=== PATIENT | female | born 1985 | race African-American/Black ===

== ENCOUNTER 2018-04-24 16:30 | Emergency (ER) | payer SELFPAY ==
[~2018-04-24] VITALS: Ht 160 cm; Wt 69.1 kg
[~2018-04-24 16:30] MED LIST: AMOXICILLIN 50500 MG PO; ANTIBIOTIC; AURALGAN EAR DR15 ML OT; B-12100 MCG PO; CEPHALEXIN500 M1 PO; COMPAZINE25 MG RC; CYMBALTA60 MG PO; DEPO-PROVER150 MG/M1 IM; DILAUDID 4MG TAB4 MG PO; DOXYCYCLINE 10100 MG PO; EFFEXOR25 M1 PO; ESZOPICOLONE; FERROUS SULFATE65 MG PO; FLAGYL500 MG PO; FLEXERIL; FLEXERIL 1010 MG/TAB PO; FLEXERIL10 MG PO; IRON SUPPLEMENT; KLONOPIN0.5 MG PO; LEVAQUIN 250MG250 MG PO; LEVAQUIN 5500 MG/TA1 PO; LORTAB 5/500 501 TAB PO; MACROBID 1100 MG/CAP PO; MAGIC MOUTH PO; METRONIDAZOLE500 MG PO; MULTIPLE VITAMI1 CAP PO; MVI; NAPROSYN500 MG PO; NO HOME MEDICATIONS; NORCO 325 MG-51 TAB PO; NORCO 325 MG-7.1 TAB PO; PEN-VEE K500 MG PO; PENICILLIN V500 MG PO; PERCOCET 325 MG1 TA2 PO; PERCOCET 5/321 UDTAB PO; PERCOCET 650 MG1 TAB PO; PERCR 7.5 PO; PHENERGAN W/CO120 ML PO; PREDNISONE20 MG PO; PRENATAL VITAMI1 TA5 PO; PRENATAL1 TA1 PO; PRILOSEC 20MG20 MG PO; SEASONALE 30 MC1 TAB PO; SEROQUEL 2525 MG/TAB PO; SEROQUEL300 MG; TRAZODONE50 MG PO; ULTRAM 50MG TAB50 MG PO; VALIUM2 MG PO; VALIUM5 MG PO; VIT B 12; XANAX .25M0.25 MG/TA PO; ZITHROMAX Z PA250 MG PO; ZOFRAN4 M1 PO; [UNRECOGNIZED DRUG - MIXTURE]; [UNRECOGNIZED DRUG - REMARK]; [UNRECOGNIZED DRUG - REMARK]
[2018-04-24 17:08] LABS: BASO % 0.2 % (0.0-2.0); GRAN # 16.1 (1.4-6.5); GRAN % 91.2 % (42.2-75.2); HEMOGLOBIN 10.3 g/dl (12.5-16.0); LYMPH # 0.5 (1.2-3.4); LYMPH % 2.6 % (20.0-51.0); MEAN CELL VOLUME 82 fl (80.0-100.0); MEAN CORPUSCULAR HEMOGLOBIN 27 pg (27.0-31.0); MEAN CORPUSCULAR HGB CONC 33 g/dl (33.0-37.0); MEAN PLATELET VOLUME 10.3 fl (7.4-10.4); MONO # 0.9 (0.1-0.6); MONO % 5.3 % (1.7-9.3); PLATELET COUNT 214 K/mm3 (130-400); RED BLOOD COUNT 3.81 M/mm3 (4.10-5.30); REDCELL DISTRIBUTION WIDTH-CV 14.1 % (11.5-14.5)
[2018-04-24 17:10] LABS: HEMATOCRIT 31.1 % (37.0-47.0)
[2018-04-24 17:23] LABS: COLLECTION METHOD CLEAN CATCH
[2018-04-24 17:23] LABS: ALANINE AMINOTRANSFERASE 37 U/L (9-52); ALBUMIN 3.2 gm/dL (3.5-5.0); ALKALINE PHOSPHATASE 108 U/L (50-136); ANION GAP 9 mmol/L (7-16); AST,SGOT 26 U/L (15-37); BILIRUBIN,TOTAL 0.5 mg/dL (0.0-1.0); BLOOD UREA NITROGEN 9 mg/dL (7-17); CALCIUM 8.3 mg/dL (8.4-10.2); CARBON DIOXIDE 23 mmol/L (22-30); CHLORIDE 97 mmol/L (98-107); GLUCOSE 136 mg/dL (74-106); LIPASE < 10 U/L (23-300); POTASSIUM 3.2 mmol/L (3.4-5.0); SODIUM 129 mmol/L (137-145); TOTAL PROTEIN 6.5 gm/dL (6.4-8.2)
[2018-04-24 17:33] LABS: C-REACTIVE PROTEIN 25.5 mg/dL (0.0-0.9)
[2018-04-24 17:35] LABS: MUCOUS Present /lpf; PH 5 (5-8); URINE APPEARANCE Cloudy; URINE BACTERIA Rare /hpf; URINE BILIRUBIN Negative (NEGATIVE); URINE BLOOD 2+ (NEGATIVE); URINE COLOR Yellow; URINE GLUCOSE Negative (NEGATIVE); URINE KETONE Trace (NEGATIVE); URINE LEUKOCYTE ESTERASE 3+ (NEGATIVE); URINE NITRATE Positive (NEGATIVE); URINE PROTEIN(semi-quant) 2+ (NEGATIVE); URINE RBC >50 /hpf; URINE UROBILINOGEN >=4.0 mg/dL (NEGATIVE)
[2018-04-24 18:54] VITALS: BP 110/67; TEMP 99.3
[2018-04-24] MEDS ORDERED: ZOFRAN 4MG T4 MG/TAB PO (19:58)
[2018-04-24] MEDS ORDERED: CEPHALEXIN500 M1 PO (19:58)
[2018-04-24] MEDS ORDERED: NORCO 325 MG-51 TAB PO (19:58)
[2018-04-24 20:13] VITALS: PULSE 117
== END 2018-04-24 20:13 | disposition home or self-care (01) ==
LOC: COL.ER 16:30
PROVIDERS: Emergency Medicine
DX: N12 Tubulo-interstitial nephritis, not specified as acute or chronic (principal); F17.210 Nicotine dependence, cigarettes, uncomplicated; Z98.51 Tubal ligation status
CPT/HCPCS: J0696; J1885; J2270; J2405; J7030; Q9967

== ENCOUNTER 2020-04-22 07:08 | Emergency (ER) | payer SELFPAY ==
[~2020-04-22] VITALS: Ht 160 cm; Wt 105.5 kg
[~2020-04-22 07:08] MED LIST changes: +ZOFRAN 4MG T4 MG/TAB PO
[2020-04-22 07:09] VITALS: TEMP 98.2
[2020-04-22] MEDS ORDERED: BUSPAR5 MG PO (07:23)
[2020-04-22] MEDS ORDERED: VALIUM 2MG T2 MG/TAB PO (07:23)
[2020-04-22] MEDS ORDERED: PERCOCET 325 MG1 TA2 PO (09:37)
[2020-04-22 11:00] VITALS: BP 112/59; PULSE 81
== END 2020-04-22 11:10 | disposition home or self-care (01) ==
LOC: COL.ER 07:08
DX: S82.842A Displaced bimalleolar fracture of left lower leg, initial encounter for closed fracture (principal); S93.02XA Subluxation of left ankle joint, initial encounter; W17.89XA Other fall from one level to another, initial encounter
CPT/HCPCS: J1885; J3010; Q4045

== ENCOUNTER 2020-04-29 08:59 | Day surgery (SDC) | payer SELFPAY ==
[~2020-04-29] VITALS: Ht 160 cm; Wt 105.3 kg
[~2020-04-29 08:59] MED LIST changes: +BUSPAR5 MG PO; +VALIUM 2MG T2 MG/TAB PO
[2020-04-29] MEDS ORDERED: NORCO 325 MG-7.1 TAB PO ×2 (09:38→13:46)
[2020-04-29 09:59] VITALS: BP 143/84; PULSE 75; TEMP 98.6
[2020-04-29 13:15] VITALS: BP 120/82; PULSE 78
--- NOTE | 2020-04-29 13:15 | NUR ---
Returns to room 4 per cart from PACU accompanied by Jerica LONG and is awake and alert. IV fluids infusing and site is free of redness. Foot of cart elevated. Toes warm to touch. Posterior splint and bulky carmencita wrap dressing dry. Siderails up x2 and call light in reach. Taking ice water and eating crackers.
[2020-04-29 13:30] VITALS: BP 119/63; PULSE 75
--- NOTE | 2020-04-29 13:30 | NUR ---
Tolerated crackers and water. Denies pain and nausea. Foot of cart elevated.
[2020-04-29 13:45] VITALS: BP 125/74; PULSE 67
--- NOTE | 2020-04-29 13:45 | NUR ---
Room air sats 1000%. Toes on the left foot dry.
[2020-04-29] MEDS ORDERED: ROXICODONE 55 MG/TAB PO (13:47)
[2020-04-29 13:57] VITALS: TEMP 97.9
[2020-04-29 14:00] VITALS: BP 126/65; PULSE 82
--- NOTE | 2020-04-29 14:00 | NUR ---
Posterior splint and bulky carmencita wrap dressing dry. Continues to deny pain or nausea.
--- NOTE | 2020-04-29 14:07 | NUR ---
Assisted up to the bedside commode. Able to void and assisted with dressing.
--- NOTE | 2020-04-29 14:20 | NUR ---
IV discontinued and dismissal instructions given. Provided scripts for [place] and Oxycodone. Given instructions for home cares and voices understanding of home cares and follow up appointment.
--- NOTE | 2020-04-29 14:29 | NUR ---
Patient dismissed to home driven by sister and taken to the front door per wheelchair and assisted into vehicle by this RN and dismissal instructions in hand.
== END 2020-04-29 14:29 | disposition home or self-care (01) ==
LOC: SDCO 08:59
DX: S82.852A Displaced trimalleolar fracture of left lower leg, initial encounter for closed fracture (principal); S93.432A Sprain of tibiofibular ligament of left ankle, initial encounter; V48.4XXA Person boarding or alighting a car injured in noncollision transport accident, initial encounter; K21.9 Gastro-esophageal reflux disease without esophagitis; M54.5 Low back pain; F31.9 Bipolar disorder, unspecified; F41.9 Anxiety disorder, unspecified; Z87.891 Personal history of nicotine dependence; Z98.51 Tubal ligation status; Z90.710 Acquired absence of both cervix and uterus; Z79.899 Other long term (current) drug therapy; Z20.828 Contact with and (suspected) exposure to other viral communicable diseases
CPT/HCPCS: C1713; J0690; J1100; J2250; J2405; J2704; J3010; J7120

== ENCOUNTER 2020-08-02 13:54 | Emergency (ER) | payer SELFPAY ==
[~2020-08-02] VITALS: Ht 160 cm; Wt 105.0 kg
[~2020-08-02 13:54] MED LIST changes: +ROXICODONE 55 MG/TAB PO
[2020-08-02 14:01] VITALS: BP 132/80; TEMP 97.7
[2020-08-02 16:17] VITALS: PULSE 81
== END 2020-08-02 16:18 | disposition home or self-care (01) ==
LOC: COL.ER 13:54
DX: M25.572 Pain in left ankle and joints of left foot (principal); F41.9 Anxiety disorder, unspecified; F17.200 Nicotine dependence, unspecified, uncomplicated

== ENCOUNTER 2020-11-23 18:51 | Emergency (ER) | payer SELFPAY ==
[~2020-11-23] VITALS: Ht 157.5 cm; Wt 107.3 kg
[2020-11-23 18:54] VITALS: TEMP 98.7
[2020-11-23 19:37] LABS: COLLECTION METHOD CLEAN CATCH
[2020-11-23 19:38] LABS: ALANINE AMINOTRANSFERASE 20 U/L (4-34); ALBUMIN 4.1 gm/dL (3.5-5.0); ALKALINE PHOSPHATASE 112 U/L (50-136); ANION GAP 6 mmol/L (7-16); AST,SGOT 24 U/L (15-37); BILIRUBIN,TOTAL < 0.1 mg/dL (0.0-1.0); BLOOD UREA NITROGEN 12 mg/dL (7-17); CALCIUM 9.3 mg/dL (8.4-10.2); CARBON DIOXIDE 26 mmol/L (22-30); CHLORIDE 104 mmol/L (98-107); CREATININE, serum 0.75 (0.52-1.25); GLUCOSE 86 mg/dL (74-106); POTASSIUM 3.9 mmol/L (3.4-5.0); SODIUM 137 mmol/L (137-145); TOTAL PROTEIN 7.5 gm/dL (6.4-8.2)
[2020-11-23 19:57] LABS: BASO # 0.1 (0.0-0.2); BASO % 0.7 % (0.0-2.0); EOS # 0.1 (0.0-0.7); EOS % 1.6 % (0-4.0); GRAN # 5.8 (1.4-6.5); GRAN % 65.5 % (42.2-75.2); HEMATOCRIT 37.7 % (37.0-47.0); HEMOGLOBIN 11.7 g/dl (12.5-16.0); LYMPH # 2.1 (1.2-3.4); LYMPH % 23.8 % (20.0-51.0); MEAN CELL VOLUME 83 fl (80.0-100.0); MEAN CORPUSCULAR HEMOGLOBIN 26 pg (27.0-31.0); MEAN CORPUSCULAR HGB CONC 31 g/dl (33.0-37.0); MEAN PLATELET VOLUME 11.5 fl (7.4-10.4); MONO # 0.7 (0.1-0.6); MONO % 8.1 % (1.7-9.3); PLATELET COUNT 332 K/mm3 (130-400); RED BLOOD COUNT 4.57 M/mm3 (4.10-5.30); REDCELL DISTRIBUTION WIDTH-CV 15.4 % (11.5-14.5)
[2020-11-23 20:09] LABS: PH 6 (5-8); SQUAMOUS EPITHELIAL 0-2 /hpf; URINE APPEARANCE Hazy; URINE BACTERIA Rare /hpf; URINE BILIRUBIN Negative (NEGATIVE); URINE BLOOD 3+ (NEGATIVE); URINE COLOR Yellow; URINE GLUCOSE Negative (NEGATIVE); URINE KETONE Negative (NEGATIVE); URINE LEUKOCYTE ESTERASE Negative (NEGATIVE); URINE NITRATE Negative (NEGATIVE); URINE PROTEIN(semi-quant) 1+ (NEGATIVE); URINE RBC >50 /hpf; URINE UROBILINOGEN Negative (NEGATIVE)
[2020-11-23 20:37] VITALS: BP 148/66; PULSE 70
== END 2020-11-23 20:44 | disposition home or self-care (01) ==
LOC: COL.ER 18:51
PROVIDERS: Nurse Practitioner
DX: N94.6 Dysmenorrhea, unspecified (principal); N80.9 Endometriosis, unspecified; M25.572 Pain in left ankle and joints of left foot; F17.290 Nicotine dependence, other tobacco product, uncomplicated
CPT/HCPCS: J1885

== ENCOUNTER 2021-02-27 12:38 | Emergency (ER) | payer SELFPAY ==
[~2021-02-27] VITALS: Ht 152.4 cm; Wt 109.1 kg
[2021-02-27 12:50] VITALS: TEMP 97
[2021-02-27 13:35] LABS: COLLECTION METHOD CLEAN CATCH
[2021-02-27 13:44] LABS: BASO # 0.1 (0.0-0.2); BASO % 0.6 % (0.0-2.0); EOS # 0.1 (0.0-0.7); EOS % 1.2 % (0-4.0); GRAN # 6.4 (1.4-6.5); GRAN % 67.1 % (42.2-75.2); HEMATOCRIT 37.6 % (37.0-47.0); HEMOGLOBIN 11.7 g/dl (12.5-16.0); LYMPH # 2.2 (1.2-3.4); LYMPH % 22.5 % (20.0-51.0); MEAN CELL VOLUME 82 fl (80.0-100.0); MEAN CORPUSCULAR HEMOGLOBIN 26 pg (27.0-31.0); MEAN CORPUSCULAR HGB CONC 31 g/dl (33.0-37.0); MEAN PLATELET VOLUME 10.9 fl (7.4-10.4); MONO # 0.8 (0.1-0.6); MONO % 8.3 % (1.7-9.3); PLATELET COUNT 365 K/mm3 (130-400); RED BLOOD COUNT 4.59 M/mm3 (4.10-5.30); REDCELL DISTRIBUTION WIDTH-CV 15.7 % (11.5-14.5)
[2021-02-27 13:46] LABS: PH 7 (5-8); URINE APPEARANCE Hazy; URINE BACTERIA None Seen /hpf; URINE BILIRUBIN Negative (NEGATIVE); URINE BLOOD 2+ (NEGATIVE); URINE COLOR Yellow; URINE GLUCOSE Negative (NEGATIVE); URINE KETONE Negative (NEGATIVE); URINE LEUKOCYTE ESTERASE Negative (NEGATIVE); URINE NITRATE Negative (NEGATIVE); URINE PROTEIN(semi-quant) Negative (NEGATIVE); URINE RBC 0-2 /hpf; URINE UROBILINOGEN Negative (NEGATIVE)
[2021-02-27 13:50] LABS: ALBUMIN 4.5 gm/dL (3.5-5.0); BILIRUBIN,TOTAL 0.2 mg/dL (0.0-1.0); CREATININE, serum 0.8 (0.52-1.25); POTASSIUM 3.9 mmol/L (3.4-5.0); TOTAL PROTEIN 7.9 gm/dL (6.4-8.2)
[2021-02-27] MEDS ORDERED: LEVSIN 0.10.125 MG/T PO (14:26)
[2021-02-27] MEDS ORDERED: ZOFRAN ODT4 MG PO (14:26)
[2021-02-27 15:10] VITALS: BP 139/94; PULSE 77
== END 2021-02-27 15:10 | disposition home or self-care (01) ==
LOC: COL.ER 12:38
PROVIDERS: Physician Assistant
DX: K52.9 Noninfective gastroenteritis and colitis, unspecified (principal); F41.9 Anxiety disorder, unspecified; Z79.899 Other long term (current) drug therapy; Z20.822 Contact with and (suspected) exposure to COVID-19
CPT/HCPCS: J2405; J7030

== ENCOUNTER 2021-05-22 14:19 | Emergency (ER) | payer SELFPAY ==
[~2021-05-22] VITALS: Ht 160 cm; Wt 105.5 kg
[~2021-05-22 14:19] MED LIST changes: +LEVSIN 0.10.125 MG/T PO; +ZOFRAN ODT4 MG PO
[2021-05-22 15:21] LABS: COLLECTION METHOD CLEAN CATCH
[2021-05-22 15:34] LABS: BASO # 0.1 K/mm3 (0.0-0.2); BASO % 0.7 % (0.0-2.0); EOS # 0.1 K/mm3 (0.0-0.7); EOS % 1.1 % (0-4.0); GRAN # 7.6 K/mm3 (1.4-6.5); GRAN % 70.4 % (42.2-75.2); HEMOGLOBIN 11.4 g/dl (12.5-16.0); LYMPH # 2.3 K/mm3 (1.2-3.4); LYMPH % 21.2 % (20.0-51.0); MEAN CELL VOLUME 80 fl (80.0-100.0); MEAN CORPUSCULAR HEMOGLOBIN 26 pg (27.0-31.0); MEAN CORPUSCULAR HGB CONC 32 g/dl (33.0-37.0); MEAN PLATELET VOLUME 11.4 fl (7.4-10.4); MONO # 0.7 K/mm3 (0.1-0.6); MONO % 6.3 % (1.7-9.3); PH 6 (5-8); PLATELET COUNT 368 K/mm3 (130-400); RED BLOOD COUNT 4.47 M/mm3 (4.10-5.30); REDCELL DISTRIBUTION WIDTH-CV 15.5 % (11.5-14.5); SQUAMOUS EPITHELIAL 0-2 /hpf; URINE APPEARANCE Clear; URINE BACTERIA Rare /hpf; URINE BILIRUBIN Negative (NEGATIVE); URINE BLOOD Negative (NEGATIVE); URINE COLOR Straw; URINE GLUCOSE Negative (NEGATIVE); URINE KETONE Negative (NEGATIVE); URINE LEUKOCYTE ESTERASE Trace (NEGATIVE); URINE NITRATE Negative (NEGATIVE); URINE PROTEIN(semi-quant) Negative (NEGATIVE); URINE RBC 0-2 /hpf; URINE UROBILINOGEN Negative (NEGATIVE)
[2021-05-22 15:37] LABS: HEMATOCRIT 35.7 % (37.0-47.0)
[2021-05-22 15:44] LABS: ALBUMIN 3.6 gm/dL (3.5-5.0); BILIRUBIN,TOTAL 0.2 mg/dL (0.2-1.2); CALCIUM 9.7 mg/dL (8.4-10.2); CREATININE, serum 0.86 mg/dL (0.57-1.11); POTASSIUM 3.7 mmol/L (3.5-4.5); TOTAL PROTEIN 7.5 gm/dL (6.2-8.1)
[2021-05-22 18:52] VITALS: BP 138/96; PULSE 75
== END 2021-05-22 18:53 | disposition home or self-care (01) ==
LOC: COL.ER 14:19
PROVIDERS: Student in an Organized Health Care Education/Training Program
DX: R10.9 Unspecified abdominal pain (principal); Z90.49 Acquired absence of other specified parts of digestive tract; Z32.02 Encounter for pregnancy test, result negative
CPT/HCPCS: J7030

== ENCOUNTER 2021-10-02 19:19 | Emergency (ER) | payer BC ==
[~2021-10-02] VITALS: Ht 160 cm; Wt 111.4 kg
[2021-10-02 19:28] VITALS: TEMP 98.7
[2021-10-02 20:24] LABS: COLLECTION METHOD CLEAN CATCH
[2021-10-02 20:30] LABS: BASO # 0.1 K/mm3 (0.0-0.2); BASO % 0.7 % (0.0-2.0); EOS # 0.2 K/mm3 (0.0-0.7); EOS % 1.5 % (0.0-4.0); GRAN # 6.6 K/mm3 (1.4-6.5); GRAN % 60.3 % (42.2-75.2); HEMOGLOBIN 11.5 g/dl (12.5-16.0); LYMPH # 3.1 K/mm3 (1.2-3.4); LYMPH % 28.4 % (20.0-51.0); MEAN CELL VOLUME 79 fl (80.0-100.0); MEAN CORPUSCULAR HEMOGLOBIN 25 pg (27-31); MEAN CORPUSCULAR HGB CONC 32 g/dl (33.0-37.0); MEAN PLATELET VOLUME 11.1 fl (7.4-10.4); MONO % 8.8 % (1.7-9.3); PLATELET COUNT 370 K/mm3 (130-400); RED BLOOD COUNT 4.57 M/mm3 (4.10-5.30); REDCELL DISTRIBUTION WIDTH-CV 15.9 % (11.5-14.5)
[2021-10-02 20:35] LABS: HEMATOCRIT 36.2 % (37.0-47.0)
[2021-10-02 20:43] LABS: MUCOUS Present (NOT PRESENT); PH 5 (5-8); SQUAMOUS EPITHELIAL 0-2 /hpf (0-10); URINE APPEARANCE Hazy (CLEAR/HAZY); URINE BACTERIA Rare /hpf (NONE SEEN); URINE BILIRUBIN Negative (NEGATIVE); URINE BLOOD 2+ (NEGATIVE); URINE COLOR Yellow (YELLOW); URINE GLUCOSE Negative (NEGATIVE); URINE KETONE Negative (NEGATIVE); URINE LEUKOCYTE ESTERASE Negative (NEGATIVE); URINE NITRATE Negative (NEGATIVE); URINE PROTEIN(semi-quant) Negative (NEGATIVE); URINE RBC >50 /hpf (0-2); URINE UROBILINOGEN Negative (NEGATIVE)
[2021-10-02 20:47] LABS: ALBUMIN 3.8 gm/dL (3.5-5.0); BILIRUBIN,TOTAL 0.2 mg/dL (0.2-1.2); C-REACTIVE PROTEIN 1.11 mg/dL (0.00-0.50); CALCIUM 9.4 mg/dL (8.4-10.2); CREATININE, serum 0.8 mg/dL (0.57-1.11); TOTAL PROTEIN 7.5 gm/dL (6.2-8.1)
[2021-10-02 21:49] VITALS: BP 133/87; PULSE 72
== END 2021-10-02 21:49 | disposition home or self-care (01) ==
LOC: COL.ER 19:19
PROVIDERS: Physician Assistant
DX: N94.6 Dysmenorrhea, unspecified (principal); Z90.49 Acquired absence of other specified parts of digestive tract; Z79.1 Long term (current) use of non-steroidal anti-inflammatories (NSAID)
CPT/HCPCS: J1885; J2270; J2405

== ENCOUNTER 2021-11-12 21:30 | Emergency (ER) | payer BC ==
[~2021-11-12] VITALS: Ht 157.5 cm; Wt 118.2 kg
[2021-11-12 23:21] LABS: COLLECTION METHOD CLEAN CATCH
[2021-11-12 23:25] LABS: BASO # 0.1 K/mm3 (0.0-0.2); BASO % 0.5 % (0.0-2.0); EOS # 0.1 K/mm3 (0.0-0.7); EOS % 0.6 % (0.0-4.0); GRAN # 10.2 K/mm3 (1.4-6.5); GRAN % 76.9 % (42.2-75.2); HEMOGLOBIN 11.2 g/dl (12.5-16.0); LYMPH # 1.8 K/mm3 (1.2-3.4); LYMPH % 13.7 % (20.0-51.0); MEAN CELL VOLUME 77 fl (80.0-100.0); MEAN CORPUSCULAR HEMOGLOBIN 25 pg (27-31); MEAN CORPUSCULAR HGB CONC 32 g/dl (33.0-37.0); MEAN PLATELET VOLUME 10.8 fl (7.4-10.4); MONO % 7.9 % (1.7-9.3); PLATELET COUNT 370 K/mm3 (130-400); RED BLOOD COUNT 4.57 M/mm3 (4.10-5.30); REDCELL DISTRIBUTION WIDTH-CV 15.7 % (11.5-14.5)
[2021-11-12 23:36] LABS: MUCOUS Present (NOT PRESENT); PH 5 (5-8); URINE APPEARANCE Hazy (CLEAR/HAZY); URINE BACTERIA Rare /hpf (NONE SEEN); URINE BILIRUBIN Negative (NEGATIVE); URINE BLOOD 2+ (NEGATIVE); URINE COLOR Yellow (YELLOW); URINE GLUCOSE Negative (NEGATIVE); URINE KETONE Negative (NEGATIVE); URINE LEUKOCYTE ESTERASE Negative (NEGATIVE); URINE NITRATE Negative (NEGATIVE); URINE PROTEIN(semi-quant) Negative (NEGATIVE); URINE RBC 0-2 /hpf (0-2); URINE UROBILINOGEN Negative (NEGATIVE)
[2021-11-12 23:42] LABS: ALBUMIN 3.8 gm/dL (3.5-5.0); BILIRUBIN,TOTAL 0.3 mg/dL (0.2-1.2); CALCIUM 9.2 mg/dL (8.4-10.2); CREATININE, serum 0.82 mg/dL (0.57-1.11); POTASSIUM 3.4 mmol/L (3.5-4.5); TOTAL PROTEIN 7.6 gm/dL (6.2-8.1)
[2021-11-12 23:57] LABS: HEMATOCRIT 35.3 % (37.0-47.0)
[2021-11-13 01:47] VITALS: BP 137/76; PULSE 85; TEMP 97.9
== END 2021-11-13 01:47 | disposition home or self-care (01) ==
LOC: COL.ER 21:30
PROVIDERS: Emergency Medicine
DX: D72.829 Elevated white blood cell count, unspecified (principal); Z90.49 Acquired absence of other specified parts of digestive tract; Z32.02 Encounter for pregnancy test, result negative
CPT/HCPCS: J1790; J1885; J7030; Q9967